=== PATIENT | male | born 1980 | race Caucasian/White ===

== ENCOUNTER → 2019-04-15 | Outpatient (CLI) | payer OTHER ==
[~2019-04-15] MED LIST: KETOROLAC 30 MG/ML 1 ML VIAL IM ONE
--- NOTE | 2019-04-15 13:41 | P.CONS ---
History of Present Illness - Reason for Consult Consult date: 04/15/19 - Chief Complaint Left leg pain - History of Present Illness This is a 39-year-old gentleman with history of chronic lower back pain with 1 back surgery and recently about a few days ago he started to feel acute and severe pain with radiation to the left lower extremity down to the left heel which started with no precipitating events. The patient has been using [place] and Flexeril for this pain for the last few days. He was not placed on oral steroids. He received a Toradol shot intramuscularly yesterday which helped his pain temporarily. He denies any bowel or bladder dysfunction or any numbness or tingling in the left lower extremity however he does feel some weakness. He had an MRI of the lumbar spine which showed disc herniation with nerve compression at the L4 5 and L5-S1 levels on the left side. Past Medical History Past Medical History: Asthma, Osteoarthritis (OA) Additional Past Medical History / Comment(s): DDD, BACK PAIN. History of Any Multi-Drug Resistant Organisms: None Reported Past Surgical History: Back Surgery Additional Past Surgical History / Comment(s): LAMINECTOMY L-4, L-5- STATES HERNIATED DISC BROKE OFF AND SURGERY TO REMOVE FROM THE SPINAL COLUMN., FINGER SURGERY, HX OF PAIN PROCEDURE. Past Anesthesia/Blood Transfusion Reactions: No Reported Reaction Past Psychological History: No Psychological Hx Reported Smoking Status: Never smoker Past Alcohol Use History: None Reported Past Drug Use History: None Reported - Past Family History Father Family Medical History: Cancer Medications and Allergies Home Medications Medication Instructions Recorded Confirmed Type Cyclobenzaprine [Flexeril] 10 mg PO Q6HR PRN 04/13/19 04/15/19 History Magnesium 250 mg PO DAILY 04/13/19 04/15/19 History Methylsulfonylmethane [MSM] 1,500 mg PO DAILY 04/13/19 04/15/19 History Multivitamins, Thera [Multivitamin 1 tab PO DAILY 04/13/19 04/15/19 History (formulary)] Turmeric Root Extract [Turmeric] 1,500 mg PO DAILY 04/13/19 04/15/19 History Zinc 50 mg PO DAILY 04/13/19 04/15/19 History HYDROcodone/APAP 5-325MG [[place] 1 tab PO Q6HR PRN 04/15/19 04/15/19 History 5-325] Allergies Allergy/AdvReac Type Severity Reaction Status Date / Time Penicillins Allergy Unknown Diarrhea Verified 04/13/19 13:36 Physical Exam - Constitutional General appearance: obese - EENT Eyes: PERRLA - Respiratory Respiratory: bilateral: CTA - Cardiovascular Rhythm: regular - Integumentary Integumentary: no calor, no cellulitis, no cyanotic, no decreased turgor, no flushed, no jaundiced, no normal, no normal turgor, no pale, no rash, no ulcer - Neurologic Neuro exam of the lower extremities showed decreased left knee reflex compared to the right side and absent ankle reflexes bilaterally. Decreased left foot flexion and extension to 4 out of 5 and normal on the right side. Straight leg raising test significantly positive on the left side He has mild tenderness in the lumbar paravertebral musculature and well-healed scar from his previous back surgery Neurologic: CNII-XII intact - Musculoskeletal He has antalgic gait - Psychiatric Psychiatric: A&O x's 3, appropriate affect, intact judgment & insight Assessment and Plan Plan: This is a 39-year-old gentleman with acute left lumbar radiculitis due to disc bulging. I will plan on doing transforaminal epidural steroid injection at the L4 5 and L5-S1 levels on the left side under fluoroscopic guidance as soon as possible. We will give the patient 30 mg of IM Toradol before he leaves a cause of his acute pain. 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 The procedure was explained to the patient and his questions were answered. I thank you for the referral
[2019-04-15 14:00] VITALS: BP 132/84; PULSE 73; RESP 16
== END | disposition home or self-care (01) ==
LOC: PNWHC3 12:19
PROVIDERS: ATTEND Anesthesiology
DX: G89.29 Other chronic pain (principal); M51.16 Intervertebral disc disorders with radiculopathy, lumbar region; Z98.890 Other specified postprocedural states; Z88.0 Allergy status to penicillin
CPT/HCPCS: 96372; J1885; G0463; 99211

== ENCOUNTER 2019-04-26 08:24 | Day surgery (SDC) | payer OTHER ==
[2019-04-21 10:23] VITALS: BMI 38.0
[~2019-04-26 08:24] MED LIST changes: -KETOROLAC 30 MG/ML 1 ML VIAL IM ONE; +LACTATED RINGERS 1,000 ML IV SCH
[2019-04-26 09:14] VITALS: TEMP 97.4
--- NOTE | 2019-04-26 10:05 | P.PCN ---
Date of Procedure: 04/26/19 Procedure(s) Performed: PREOPERATIVE DIAGNOSIS: Lumbar radiculopathy POSTOPERATIVE DIAGNOSIS: Lumbar radiculopathy Attending physician: Jian Steiner M.D. PROCEDURE 1. Transforaminal epidural steroid injection under fluoroscopic guidance L4-5, L5-S1 level, left side 2. Lumbar epidurogram ANESTHESIA: Local with 1% lidocaine 3 ml ; IV sedation with Versed and fentanyl PROCEDURE INDICATION: The patient with low back pain and radiculopathy symptoms unresponsive to conservative treatment. Fluoroscopy was used for the procedure and fluoroscopic images were saved to the radiology portion of patient's chart. PROCEDURE DESCRIPTION / TECHNIQUE: The patient was seen and identified in the preoperative area. Risks, benefits, complications, and alternatives were discussed with the patient. The patient agreed to proceed with the procedure and signed the consent. IV was started, and vital signs were stable. Patient was taken to the OR and time out was completed. The patient was placed in the prone position on procedure table and a pillow was placed under the abdomen to reduce lumbar lordosis. The lumbosacral area was prepped and draped in the usual sterile fashion. Vital signs were closely monitored during the procedure. Conscious sedation was used. Using oblique fluoroscopy, the chin of the ``Ricardo dog and the skin and deeper tissues just below was localized with 1% lidocaine. Subsequently, a 22- gauge 3.5-inch spinal needle was advanced under a tunneled view fluoroscopic rishi dance just underneath the chin of the ``Ricardo dog . Under lateral fluoroscopy, the needle was then advanced to the posterior border of the foramen. After negative aspiration of CSF and blood and with no paresthesias, 1 mL of Isovue-200 contrast dye was injected under live fluoroscopy and there was no evidence of intravascular injection. The injectate solution consisting of 7.5 mg of dexamethasone with 1 mL of 1% lidocaine was then delivered at each location. A total of 15 mg of dexamethasone was used. The needle was withdrawn intact. At the end of the procedure, skin was cleansed, and bandages were applied. COMPLICATIONS: None COMMENTS: DISPOSITION / PLANS: The patient was placed in a supine position and transferred to the recovery area in a stable condition for observation. There was no evidence of lower extremity motor or sensory deficit after the procedure. Patient was discharged from the recovery room after meeting discharge criteria. Home discharge instructions were given to the patient by the staff. The patient will follow up in clinic in 4 weeks.
[2019-04-26] MEDS ORDERED: IV FLUID CONTINUATION 1,000 ML IV ONE ×2 (10:07)
[2019-04-26 10:11] VITALS: PULSE 71; RESP 20
[2019-04-26 10:26] VITALS: BP 126/77
--- NOTE | 2019-04-26 10:49 | FL ---
EXAMINATION TYPE: FL guided pain mgmt statistic DATE OF EXAM: 04/26/2019 HISTORY: Pain 10 SEC FL, 7 FILMS
== END 2019-04-26 10:37 | disposition home or self-care (01) ==
LOC: ORPAIN 08:24
PROVIDERS: ATTEND Anesthesiology
DX: G89.29 Other chronic pain (principal); M51.16 Intervertebral disc disorders with radiculopathy, lumbar region; J45.909 Unspecified asthma, uncomplicated; M19.90 Unspecified osteoarthritis, unspecified site; Z79.891 Long term (current) use of opiate analgesic; Z79.899 Other long term (current) drug therapy; Z88.0 Allergy status to penicillin
CPT/HCPCS: 64483; 64484; J2250; J1100; J3010; Q9966; 99152

== ENCOUNTER → 2019-06-03 | Outpatient (CLI) | payer OTHER ==
[2019-06-03 12:33] VITALS: BP 146/95; PULSE 71; RESP 18
--- NOTE | 2019-06-03 15:06 | P.PAINPG ---
Subjective Progress Note Date: 06/03/19 This is a 39-year-old gentleman with history of chronic lower back pain with 1 back surgery who presents to follow-up after left-sided transforaminal epidural injection at L4-L5 and L5-S1. He reports very little relief from this. And he has gone to the ED multiple times. Since his pain is since extensive he did see his neurosurgeon. Who recommended nerve blocks thus he presents today for his nerve blocks. The patient is taking Robaxin [place] and naproxen from another clinic. Objective - Vital Signs Vital signs: Vital Signs Temp Pulse 71 06/03/19 12:28 Resp 18 06/03/19 12:28 BP 146/95 06/03/19 12:28 Pulse Ox 97 06/03/19 12:28 - Exam Vital Signs: Reviewed in EMR GENERAL: Well appearing, in no acute distress, PSYCH: Mood and affect is appropriate. Awake, alert, and oriented SKIN: Skin color, texture, turgor normal, no rashes or lesions HEENT: Normocephalic, atraumatic. EOM intact CV: No pedal edema RESP: Respirations are unlabored, no audible wheezing GI: Abdomen non-distended MUSCULOSKELETAL: Bilateral upper and lower extremity strength is normal and symmetric. No atrophy or tone abnormalities are noted. Lumbar spine: Positive pain to palpation over the lumbar spine and paraspinous muscles. He does have slight pain with facet loading and back extension/rotation. Buttocks: No pain to palpation over the PSIS, Suhas test is negative bilaterally Extremities: Peripheral joint ROM is full and pain free without obvious instability or laxity in all four extremities. No edema or skin discolorations noted. Gait: Gait is anantalgic NEUR: Bilateral upper and lower extremity coordination and muscle stretch reflexes are physiologic and symmetric. Negative clonus. No loss of sensation is noted. Cranial nerves are grossly intact. Assessment and Plan Assessment: Assessment: 1. Lumbar radiculopathy without myelopathy 2. Lumbar spondylosis 3. Obesity Plan: 1. Explanation: I explained to him the causes of pain, and we discussed our interventional procedures are not changing the anatomy. He had back surgery once, his surgeon is trying to avoid surgery. 2. Opioid agreement: None 3. Counseling: The patient was counseled extensively on BODY MASS INDEX, EXERCISE. Specifically, the patient was instructed regarding the importance of weight control, and exercise in the context of both chronic pain and overall health. 4. Procedures: Given that his pain is 80-90% axial in nature, it is reasonable to pursue medial branch RFA workup. Since his pain is on the left side we will pursue medial branch blocks at the left L3, L4 and the dorsal rami of L5. 5. Consultations: None 6. Investigations: MRI report reviewed 7. Medications: We are not writing her medications 8. Disposition: For his diagnostic medial branch block , PQRS Measure Charge Sheet Measure #226: Tobacco Use: Screen & Cessation Intervention: Pt not a tobacco user Measure #111: Pneumonia Vaccination: Pneumococcal vaccine NOT administered or previously given Measure #47: Advance Care Plan: Advance care planning discussed & documented, pt chose/unable to give Measure #131: Pain Assessment & Follow-up: Pain positive & plan documented, Follow-up scheduled Measure #431: Unhealthy Alcohol Use Preventative Care & Scrn: Patient not identified as an unhealthy alcohol user PQRS Narrative: Smoking Status Never smoker Blood Pressure 146/95 Pain Intensity [Lower Back] 4 Scale Used Numeric (1 - 10) Hx Alcohol Use (MH) No Home Medications: Ambulatory Orders Cyclobenzaprine [Flexeril] 10 mg PO Q6HR PRN 04/13/19 Magnesium 250 mg PO DAILY 04/13/19 Methylsulfonylmethane [MSM] 1,500 mg PO DAILY 04/13/19 Multivitamins, Thera [Multivitamin (formulary)] 1 tab PO DAILY 04/13/19 Turmeric Root Extract [Turmeric] 1,500 mg PO DAILY 04/13/19 Zinc 50 mg PO DAILY 04/13/19 HYDROcodone/APAP 10-325MG [[place] 10-325] 1 tab PO Q6HR PRN 04/21/19 Methocarbamol [Robaxin] 500 mg PO Q12H 06/01/19 Naproxen Sodium 220 mg PO Q12HR 06/01/19 Controlled Substance Measures - Controlled Substance Measures Is patient prescribed a controlled substance at discharge?: No
== END | disposition home or self-care (01) ==
LOC: PNWHC3 12:19
PROVIDERS: ATTEND Student in an Organized Health Care Education/Training Program
DX: G89.29 Other chronic pain (principal); M47.26 Other spondylosis with radiculopathy, lumbar region; Z68.39 Body mass index [BMI] 39.0-39.9, adult; E66.9 Obesity, unspecified; Z98.890 Other specified postprocedural states; Z79.891 Long term (current) use of opiate analgesic; Z79.899 Other long term (current) drug therapy
CPT/HCPCS: 99211